=== PATIENT | female | born 1975 | race Caucasian/White ===

== ENCOUNTER 2020-07-13 09:21 | Day surgery (SDC) | payer OTHER ==
[~2020-07-13] VITALS: Ht 167.6 cm; Wt 111.1 kg
[2020-07-13] VITALS (10 sets, daily range): BP systolic 115–167; BP diastolic 52–86; PULSE 70–82; TEMP 98.5
[2020-07-13] MEDS ORDERED: HYGROTON 2525 MG/TAB PO (10:24)
[2020-07-13 10:25] LABS: HEMATOCRIT 39.6 % (37.0-47.0); MEAN CELL VOLUME 86 fl (80.0-100.0); MEAN CORPUSCULAR HEMOGLOBIN 28 pg (27.0-31.0); MEAN CORPUSCULAR HGB CONC 33 g/dl (33.0-37.0); MEAN PLATELET VOLUME 9.1 fl (7.4-10.4); PLATELET COUNT 437 K/mm3 (130-400); RED BLOOD COUNT 4.63 M/mm3 (4.10-5.30)
[2020-07-13] MEDS ORDERED: PROAIR HFA0.09 MG/AC IH (10:25)
[2020-07-13] MEDS ORDERED: FLEXERIL5 MG PO (10:25)
[2020-07-13] MEDS ORDERED: TOPAMAX 25MG25 M1 PO (10:26)
[2020-07-13 10:33] LABS: PROTHROMBIN TIME 11.5 SECONDS (9.7-12.8)
[2020-07-13 10:35] LABS: CALCIUM 9.1 mg/dL (8.4-10.2); CREATININE, serum 0.51 (0.52-1.25); PARTIAL THROMBOPLASTIN TIME 38.3 SECONDS (26.0-37.0); POTASSIUM 3.5 mmol/L (3.4-5.0)
--- NOTE | 2020-07-13 11:24 | NUR ---
SEE MERGE FOR ALL MEDICATION ADMINISTRATION TIMES, INTRA AND POST SEDATION ASSESSMENTS
--- NOTE | 2020-07-13 12:00 | NUR ---
Report from Re FAYE. Transferred from excavation laborer by bed. Right Tband with 15cc air CD&I, good pulses and cap refill < 3 secs noted. VSS. REsting denies pain and needs at this time
--- NOTE | 2020-07-13 14:45 | NUR ---
Right Tbans released of 15 cc air and dressing applied. INT discontinued intact. Printed discharge instructions and have used interpretor to give instructions, pt verbalizes understanding.
--- NOTE | 2020-07-13 15:45 | NUR ---
Transferred to private car by jo
== END 2020-07-13 15:46 | disposition home or self-care (01) ==
LOC: COL.CAR 09:21
PROVIDERS: Internal Medicine Cardiovascular Disease
DX: R07.89 Other chest pain (principal); I10 Essential (primary) hypertension
CPT/HCPCS: J1644; J2250; J3010; J7030; Q9967